=== PATIENT | male | born 1965 | race Caucasian/White ===

== ENCOUNTER 2017-05-03 15:14 | Emergency (ER) | payer BC ==
[~2017-05-03] VITALS: Ht 172.7 cm; Wt 83.6 kg
[2017-05-03] MEDS ORDERED: NORCO 5/3251 TABLET PO (16:29)
[2017-05-03 17:00] VITALS: BP 150/100
== END 2017-05-03 17:04 | disposition home or self-care (01) ==
LOC: EME 15:14
DX: S42.002A Fracture of unspecified part of left clavicle, initial encounter for closed fracture (principal); V18.0XXA Pedal cycle driver injured in noncollision transport accident in nontraffic accident, initial encounter; Y93.55 Activity, bike riding
CPT/HCPCS: 71010; 73030; 99281; 99283